=== PATIENT | female | born 1995 | race Caucasian/White ===

== ENCOUNTER 2023-03-20 06:54 | Inpatient (IN) | payer BC ==
[~2023-03-20 06:54] MED LIST: Bupivacaine 0.25% 10 ML SDV ONE; Lidocaine 1% 10 ML MDV ONE
[2023-03-20] MEDS ORDERED: Misoprostol 25 MCG (1/4 of 100 MCG) Tab VAG PRN (07:40)
[2023-03-20] MEDS ORDERED: Nalbuphine HCl 10 MG/ 1ML Amp IVPUSH PRN (07:40)
[2023-03-20] MEDS ORDERED: Sodium Chloride 0.9% 10 ML Syringe FLUSH PRN (07:40)
[2023-03-20] MEDS ORDERED: Lidocaine 1% 50 ML MDV INJECT PRN (07:40)
[2023-03-20] MEDS ORDERED: Acetaminophen 325 MG Tab PO PRN ×2 (07:40→19:18)
[2023-03-20] MEDS ORDERED: Oxytocin/Lactated Ringers 30 UNIT/500 ML BAG IV SCH ×2 (07:45→19:18)
[2023-03-20] MEDS ORDERED: Ampicillin 2 GM in Sodium Chloride 0.9% 100 ML IV ONE (08:00)
[2023-03-20 08:10] LABS: BASOPHILS PERCENT AUTO 0.2 % (0.0-1.0); EOSINOPHILS PERCENT AUTO 0.1 % (0.0-6.0); HEMATOCRIT 33.4 % (37.0-47.0); HEMOGLOBIN 11.3 gm/dl (12.0-16.0); IMMATURE GRAN ABSOLUTE AUTO 0.04 K/mm3 (0.00-0.05); IMMATURE GRAN PERCENT AUTO 0.3 % (0.0-0.4); LYMPHOCYTES ABSOLUTE AUTO 1.4 K/mm3 (1.0-4.8); LYMPHOCYTES PERCENT AUTO 11.6 % (24.0-44.0); MEAN CORPUSCULAR HEMOGLOBIN 29.4 pg (28.0-32.0); MEAN CORPUSCULAR HGB CONC 33.8 g/dl (32.0-36.0); MEAN CORPUSCULAR VOLUME 86.8 fl (83.0-99.0); MEAN PLATELET VOLUME 10.8 fl (9.4-12.3); MONOCYTES ABSOLUTE AUTO 0.7 K/mm3 (0.0-0.8); MONOCYTES PERCENT AUTO 6.1 % (0.0-8.0); NEUTROPHILS ABSOLUTE AUTO 9.7 K/mm3 (1.8-7.7); NEUTROPHILS PERCENT AUTO 81.7 % (41.0-71.0); PLATELET COUNT,PLT 194 K/mm3 (150-400); RED BLOOD CELL COUNT 3.85 M/mm3 (4.10-5.30)
[2023-03-20] MEDS: Lactated Ringers 1,000 ML IV SCH ×2 (08:10→12:26)
[2023-03-20] MEDS ORDERED: Sodium Chloride 0.9% 10 ML Syringe FLUSH SCH (09:00)
[2023-03-20] MEDS ORDERED: Ondansetron 4 MG/2 ML SDV IVPUSH PRN (09:33)
[2023-03-20] MEDS ORDERED: fentaNYL 100 MCG/2 ML SDV EPIDUR PRN (10:53)
[2023-03-20] MEDS ORDERED: Bupivacaine/fentaNYL/NS 100 ML Bag EPIDUR PRN (10:53)
[2023-03-20] MEDS ORDERED: ePHEDrine 50 MG/ML SDV IVPUSH PRN (10:53)
[2023-03-20] MEDS ORDERED: diphenhydrAMINE 50 MG/ML SDV IVPUSH PRN (10:53)
[2023-03-20] MEDS: Ampicillin 1 GM in Sodium Chloride 0.9% 100 ML IV SCH ×2 (12:03→15:56)
[2023-03-20] MEDS ORDERED: Magnesium Hydroxide 400 MG/5 ML Susp 30 ML Cup PO PRN (19:18)
[2023-03-20] MEDS ORDERED: Hydrocortisone Acetate 25 MG Supp RECTAL PRN (19:18)
[2023-03-20] MEDS: Benzocaine/Menthol 20%-0.5% Spray 78 GM Cannister TOP PRN (20:20)
[2023-03-20] MEDS: Witch Hazel Medicated Pads 40/Jar TOP PRN (20:20)
[2023-03-20] MEDS: Docusate Sodium 100 MG Cap PO SCH (21:56)
[2023-03-20] MEDS: Ibuprofen 600 MG Tab PO PRN (21:56)
[2023-03-21 06:21] LABS: HEMATOCRIT 26.2 % (37.0-47.0); HEMOGLOBIN 8.7 gm/dl (12.0-16.0); MEAN CORPUSCULAR HEMOGLOBIN 28.6 pg (28.0-32.0); MEAN CORPUSCULAR HGB CONC 33.2 g/dl (32.0-36.0); MEAN CORPUSCULAR VOLUME 86.2 fl (83.0-99.0); MEAN PLATELET VOLUME 11.3 fl (9.4-12.3); PLATELET COUNT,PLT 200 K/mm3 (150-400); RED BLOOD CELL COUNT 3.04 M/mm3 (4.10-5.30); WHITE BLOOD CELL COUNT,WBC 16.09 K/mm3 (3.9-11.3)
[2023-03-21] MEDS: Ibuprofen 600 MG Tab PO PRN ×2 (07:35→21:36)
[2023-03-21] MEDS: Docusate Sodium 100 MG Cap PO SCH ×3 (07:36→21:37)
[2023-03-21] MEDS: Prenatal Multivitamin with Calcium/Folic Acid/Iron Tab PO SCH ×2 (07:36→09:23)
[2023-03-22] MEDS: Ibuprofen 600 MG Tab PO PRN (06:26)
[2023-03-22] MEDS ORDERED: Ferrous Sulfate 324 MG Tab.EC PO SCH (07:00)
[2023-03-22] MEDS: Docusate Sodium 100 MG Cap PO SCH (09:34)
[2023-03-22] MEDS: Prenatal Multivitamin with Calcium/Folic Acid/Iron Tab PO SCH (09:34)
[2023-03-22] MEDS: Benzocaine/Menthol 20%-0.5% Spray 78 GM Cannister TOP PRN (12:52)
[2023-03-22] MEDS: Witch Hazel Medicated Pads 40/Jar TOP PRN (12:52)
== END 2023-03-22 13:53 | disposition home or self-care (01) | DRG 542 ==
LOC: JD.OB 06:54 → OBSVTOIN 19:04
PROVIDERS: ADMIT Obstetrics & Gynecology; ATTEND Obstetrics & Gynecology
PROC: 10E0XZZ Delivery of Products of Conception, External Approach (ICD-10-PCS; principal; 2023-03-20)
PROC: 0U7C7ZZ Dilation of Cervix, Via Natural or Artificial Opening (ICD-10-PCS; 2023-03-20)
PROC: 3E0P7VZ Introduction of Hormone into Female Reproductive, Via Natural or Artificial Opening (ICD-10-PCS; 2023-03-20)
PROC: 10907ZC Drainage of Amniotic Fluid, Therapeutic from Products of Conception, Via Natural or Artificial Opening (ICD-10-PCS; 2023-03-20)
PROC: 0DQP0ZZ Repair Rectum, Open Approach (ICD-10-PCS; 2023-03-20)
PROC: 0UQMXZZ Repair Vulva, External Approach (ICD-10-PCS; 2023-03-20)
PROC: 3E0R3BZ Introduction of Anesthetic Agent into Spinal Canal, Percutaneous Approach (ICD-10-PCS; 2023-03-20)
PROC: 00HU33Z Insertion of Infusion Device into Spinal Canal, Percutaneous Approach (ICD-10-PCS; 2023-03-20)
DX: O48.0 Post-term pregnancy (principal); O99.824 Streptococcus B carrier state complicating childbirth; Z37.0 Single live birth; O99.214 Obesity complicating childbirth; O70.3 Fourth degree perineal laceration during delivery; O70.0 First degree perineal laceration during delivery; O99.63 Diseases of the digestive system complicating the puerperium; K59.00 Constipation, unspecified; O72.1 Other immediate postpartum hemorrhage; Z3A.40 40 weeks gestation of pregnancy
CPT/HCPCS: 01967; 36415; 51702; 59025; 59409; 85025; 85027; 86592; A9270-GY; C1726; J0290; J2405; J3010; J3490; J7120; J7999